=== PATIENT | female | born 2000 | race Caucasian/White ===

== ENCOUNTER 2021-10-25 14:09 | Emergency (ER) | payer OTHER, BC ==
[2021-10-25] MEDS ORDERED: Lorazepam 1 MG TAB ONE (15:21)
[2021-10-25] MEDS ORDERED: Acetaminophen 500 MG TAB ONE (15:21)
== END 2021-10-25 16:45 | disposition home or self-care (01) ==
LOC: ERS 14:09
DX: S61.411A Laceration without foreign body of right hand, initial encounter (principal); S40.811A Abrasion of right upper arm, initial encounter; S40.812A Abrasion of left upper arm, initial encounter; V43.52XA Car driver injured in collision with other type car in traffic accident, initial encounter
CPT/HCPCS: 12001; 71045; 72170; G0390